=== PATIENT | female | born 1980 | race Caucasian/White ===

== ENCOUNTER 2017-01-29 14:55 | Observation (INO) | payer MEDICAID ==
[~2017-01-29] VITALS: Ht 154.9 cm; Wt 54.0 kg
[2017-01-29] MEDS ORDERED: PREN1TAB80 PO (15:24)
[2017-01-29] MEDS ORDERED: FOLI1 PO (15:24)
[2017-01-29 17:05] LABS: APPEARANCE,URINE CLEAR (CLEAR); BILIRUBIN,URINE NEGATIVE (NEGATIVE); GLUCOSE, URINE (UA) >=1000 mg/dL (NEGATIVE); KETONES,URINE TRACE mg/dL (NEGATIVE); LEUKOCYTE ESTERASE ,URINE NEGATIVE (NEGATIVE); NITRATE,URINE NEGATIVE (NEGATIVE); OCCULT BLOOD,URINE NEGATIVE (NEGATIVE); PH,URINE 7.5 (5.0-8.0); PROTEIN,URINE NEGATIVE (NEGATIVE)
[2017-01-29 17:15] LABS: SQUAMOUS EPITHELIAL CELL,UR Few /LPF (None Seen)
[2017-01-29 17:16] LABS: BACTERIA,URINE Few /HPF (None Seen)
== END 2017-01-29 18:45 | disposition home or self-care (01) ==
LOC: 4S 14:55 → PREINTOOBSV 15:30
PROVIDERS: ADMIT Obstetrics & Gynecology; ATTEND Obstetrics & Gynecology
DX: O26.892 Other specified pregnancy related conditions, second trimester (principal); N89.8 Other specified noninflammatory disorders of vagina; R10.30 Lower abdominal pain, unspecified; Z3A.24 24 weeks gestation of pregnancy
CPT/HCPCS: 59025; 76805; 81001; G0378

== ENCOUNTER 2017-03-31 11:01 | Observation (INO) | payer MEDICAID ==
[~2017-03-31] VITALS: Wt 53.5 kg
[~2017-03-31 11:01] MED LIST: FOLI1 PO; PREN1TAB80 PO
[2017-03-31 12:57] LABS: GLUCOMETER DEV NAME(LOC) 4S 8; GLUCOSE,POINT OF CARE 73 MG/DL (70-110)
== END 2017-03-31 13:00 | disposition home or self-care (01) ==
LOC: 4S 11:01
PROVIDERS: ADMIT Obstetrics & Gynecology; ATTEND Obstetrics & Gynecology
DX: O24.410 Gestational diabetes mellitus in pregnancy, diet controlled (principal); O09.523 Supervision of elderly multigravida, third trimester; Z3A.33 33 weeks gestation of pregnancy
CPT/HCPCS: 59025; 82962; G0378

== ENCOUNTER 2017-04-05 08:50 | Observation (INO) | payer MEDICAID ==
[~2017-04-05] VITALS: Ht 152.4 cm; Wt 54.4 kg
[2017-04-05] MEDS ORDERED: PREN-134 PO (09:05)
[2017-04-05 09:46] VITALS: BP 107/66
[2017-04-05] MEDS ORDERED: INSNPH SQ (09:49)
[2017-04-05 10:05] LABS: GLUCOMETER DEV NAME(LOC) 4S 8; GLUCOSE,POINT OF CARE 85 MG/DL (70-110)
== END 2017-04-05 12:30 | disposition home or self-care (01) ==
LOC: 4S 08:50
PROVIDERS: ADMIT Obstetrics & Gynecology; ATTEND Obstetrics & Gynecology
DX: O24.414 Gestational diabetes mellitus in pregnancy, insulin controlled (principal); O26.893 Other specified pregnancy related conditions, third trimester; R10.30 Lower abdominal pain, unspecified; O09.523 Supervision of elderly multigravida, third trimester; Z3A.34 34 weeks gestation of pregnancy
CPT/HCPCS: 59025; 82962; G0378

== ENCOUNTER 2017-04-07 08:36 | Observation (INO) | payer MEDICAID ==
[~2017-04-07] VITALS: Ht 154.9 cm; Wt 54.9 kg
[~2017-04-07 08:36] MED LIST changes: +INSNPH SQ; +PREN-134 PO
[2017-04-07 09:33] VITALS: BP 101/71
[2017-04-07 09:38] LABS: GLUCOMETER DEV NAME(LOC) 4S 8; GLUCOSE,POINT OF CARE 86 MG/DL (70-110)
[2017-04-07] MEDS ORDERED: INFLUENZA VIRUS VACCINE QVS 2017-18 (3YR+)/PF 60 MCG/0.5 ML SYRINGE IM ONE (10:00)
[2017-04-07 10:42] LABS: APPEARANCE,URINE CLOUDY (CLEAR); BILIRUBIN,URINE NEGATIVE (NEGATIVE); GLUCOSE, URINE (UA) NEGATIVE (NEGATIVE); KETONES,URINE NEGATIVE (NEGATIVE); LEUKOCYTE ESTERASE ,URINE MODERATE (NEGATIVE); NITRATE,URINE NEGATIVE (NEGATIVE); OCCULT BLOOD,URINE SMALL (NEGATIVE); PROTEIN,URINE NEGATIVE (NEGATIVE); UROBILINOGEN,URINE 0.2 mg/dL (<=1.0)
[2017-04-07 10:55] LABS: BACTERIA,URINE Moderate /HPF (None Seen); SQUAMOUS EPITHELIAL CELL,UR Many /LPF (None Seen)
[2017-04-07 10:58] LABS: MUCUS,URINE Few LPF (None Seen)
== END 2017-04-07 12:15 | disposition home or self-care (01) ==
LOC: 4S 09:05
PROVIDERS: ADMIT Obstetrics & Gynecology; ATTEND Obstetrics & Gynecology
DX: O24.419 Gestational diabetes mellitus in pregnancy, unspecified control (principal); O26.893 Other specified pregnancy related conditions, third trimester; R10.30 Lower abdominal pain, unspecified; O09.523 Supervision of elderly multigravida, third trimester; Z3A.34 34 weeks gestation of pregnancy
CPT/HCPCS: 36430; 76805; 81001; 82962; 87086; 90471; G0378

== ENCOUNTER 2017-04-11 08:35 | Observation (INO) | payer MEDICAID ==
[2017-04-11 09:23] VITALS: BP 103/64
[2017-04-11 09:38] LABS: GLUCOMETER DEV NAME(LOC) 4S 8; GLUCOSE,POINT OF CARE 86 MG/DL (70-110)
== END 2017-04-11 10:25 | disposition home or self-care (01) ==
LOC: 4S 08:35
PROVIDERS: ADMIT Obstetrics & Gynecology; ATTEND Obstetrics & Gynecology
DX: O24.414 Gestational diabetes mellitus in pregnancy, insulin controlled (principal); O26.893 Other specified pregnancy related conditions, third trimester; R10.9 Unspecified abdominal pain; O09.523 Supervision of elderly multigravida, third trimester; Z3A.34 34 weeks gestation of pregnancy
CPT/HCPCS: 59025; 76805; 82962; G0378

== ENCOUNTER 2017-04-14 08:55 | Observation (INO) | payer MEDICAID ==
[~2017-04-14] VITALS: Ht 152.4 cm; Wt 54.9 kg
[~2017-04-14 08:55] MED LIST changes: -PREN-134 PO
[2017-04-14 09:05] VITALS: BP 103/66
[2017-04-14 09:23] LABS: GLUCOMETER DEV NAME(LOC) 4S 8; GLUCOSE,POINT OF CARE 97 MG/DL (70-110)
== END 2017-04-14 12:05 | disposition home or self-care (01) ==
LOC: 4S 08:55
PROVIDERS: ADMIT Obstetrics & Gynecology; ATTEND Obstetrics & Gynecology
DX: O24.419 Gestational diabetes mellitus in pregnancy, unspecified control (principal); O62.9 Abnormality of forces of labor, unspecified; Z3A.35 35 weeks gestation of pregnancy
CPT/HCPCS: 59025; 76805; 82962; G0378

== ENCOUNTER 2017-04-16 08:55 | Observation (INO) | payer MEDICAID ==
[~2017-04-16] VITALS: Ht 152.4 cm; Wt 56.2 kg
[2017-04-16 09:14] VITALS: BP 104/68
[2017-04-16 09:42] LABS: GLUCOMETER DEV NAME(LOC) 4S 8; GLUCOSE,POINT OF CARE 114 MG/DL (70-110)
[2017-04-16 09:42] LABS: GLUCOMETER DEV NAME(LOC) 4S 8; GLUCOSE,POINT OF CARE 125 MG/DL (70-110)
== END 2017-04-16 10:00 | disposition home or self-care (01) ==
LOC: 4S 08:55
PROVIDERS: ADMIT Obstetrics & Gynecology; ATTEND Obstetrics & Gynecology
DX: O24.414 Gestational diabetes mellitus in pregnancy, insulin controlled (principal); O09.523 Supervision of elderly multigravida, third trimester; Z3A.35 35 weeks gestation of pregnancy
CPT/HCPCS: 59025; 76805; 82962; G0378

== ENCOUNTER 2017-04-18 08:43 | Observation (INO) | payer MEDICAID ==
[~2017-04-18] VITALS: Ht 154.9 cm; Wt 55.8 kg
[2017-04-18 09:00] VITALS: BP 104/61
== END 2017-04-18 10:40 | disposition home or self-care (01) ==
LOC: 4S 08:43
PROVIDERS: ADMIT Obstetrics & Gynecology; ATTEND Obstetrics & Gynecology
DX: O09.523 Supervision of elderly multigravida, third trimester (principal); O24.414 Gestational diabetes mellitus in pregnancy, insulin controlled; Z3A.35 35 weeks gestation of pregnancy
CPT/HCPCS: 59025; 76805; G0378

== ENCOUNTER 2017-04-21 08:50 | Observation (INO) | payer MEDICAID ==
[~2017-04-21] VITALS: Ht 152.4 cm; Wt 55.5 kg
[2017-04-21 09:10] VITALS: BP 103/64
[2017-04-21 11:08] LABS: GLUCOMETER DEV NAME(LOC) 4S 8; GLUCOSE,POINT OF CARE 74 MG/DL (70-110)
== END 2017-04-21 11:20 | disposition home or self-care (01) ==
LOC: 4S 08:50
PROVIDERS: ADMIT Obstetrics & Gynecology; ATTEND Obstetrics & Gynecology
DX: O24.419 Gestational diabetes mellitus in pregnancy, unspecified control (principal); O09.523 Supervision of elderly multigravida, third trimester; Z3A.36 36 weeks gestation of pregnancy
CPT/HCPCS: 59025; 76805; 82962; G0378

== ENCOUNTER 2017-04-25 09:25 | Observation (INO) | payer MEDICAID ==
[~2017-04-25] VITALS: Ht 152.4 cm; Wt 55.8 kg
[2017-04-25 10:14] VITALS: BP 112/74
[2017-04-25 10:37] LABS: GLUCOMETER DEV NAME(LOC) 4S 8; GLUCOSE,POINT OF CARE 82 MG/DL (70-110)
== END 2017-04-25 11:30 | disposition home or self-care (01) ==
LOC: 4S 09:25
PROVIDERS: ADMIT Obstetrics & Gynecology; ATTEND Obstetrics & Gynecology
DX: O09.523 Supervision of elderly multigravida, third trimester (principal); Z3A.36 36 weeks gestation of pregnancy
CPT/HCPCS: 59025; 76805; 82962; G0378

== ENCOUNTER 2017-04-28 09:00 | Observation (INO) | payer MEDICAID ==
[~2017-04-28] VITALS: Ht 152.4 cm; Wt 56.2 kg
[2017-04-28 09:20] VITALS: BP 106/71
[2017-04-28 09:38] LABS: GLUCOMETER DEV NAME(LOC) 4S 8; GLUCOSE,POINT OF CARE 92 MG/DL (70-110)
== END 2017-04-28 10:45 | disposition home or self-care (01) ==
LOC: 4S 09:00
PROVIDERS: ADMIT Obstetrics & Gynecology; ATTEND Obstetrics & Gynecology
DX: O24.414 Gestational diabetes mellitus in pregnancy, insulin controlled (principal); O26.893 Other specified pregnancy related conditions, third trimester; R10.30 Lower abdominal pain, unspecified; O09.523 Supervision of elderly multigravida, third trimester; Z3A.37 37 weeks gestation of pregnancy
CPT/HCPCS: 59025; 76816; 82962; G0378

== ENCOUNTER 2017-04-29 14:53 | Inpatient (IN) | payer MEDICAID ==
[~2017-04-29] VITALS: Ht 154.9 cm; Wt 56.2 kg
[2017-04-29] MEDS ORDERED: RINGERS SOLUTION,LACTATED 1,000 ML IV PRN (15:10)
[2017-04-29] MEDS ORDERED: RINGERS SOLUTION,LACTATED 1,000 ML IV SCH (15:10)
[2017-04-29] MEDS ORDERED: OXYTOCIN 30 UNITS/LACT RINGERS 500 ML IV ONE (15:10)
[2017-04-29] MEDS ORDERED: RINGERS SOLUTION,LACTATED 1,000 ML IV ONE ×2 (15:13→17:09)
[2017-04-29] MEDS ORDERED: FentaNYL CITRATE-PF 100 MCG/2 ML VIAL IVP PRN (15:15)
[2017-04-29] MEDS ORDERED: LIDOCAINE HCL/PF 1% 30 ML VIAL INJ PRN (15:15)
[2017-04-29] MEDS ORDERED: CITRIC ACID/SODIUM CITRATE 30 ML SOLUTION UDCUP PO PRN (15:15)
[2017-04-29] MEDS ORDERED: METOCLOPRAMIDE HCL 5 MG/ML 2 ML VIAL IVP PRN (15:15)
[2017-04-29] MEDS ORDERED: METHYLERGONOVINE MALEATE 0.2 MG/ML VIAL IM PRN (15:15)
[2017-04-29 15:30] VITALS: BP 120/89
[2017-04-29 15:41] LABS: BASOPHILS % (AUTO) 1.7 % (0.0-2.0); EOSINOPHILS % (AUTO) 0.5 % (1.0-6.0); HEMATOCRIT 37.8 % (36-46); HEMOGLOBIN 12.4 g/dL (12.0-16.0); LYMPHOCYTES # (AUTO) 1.7 K/uL (1.0-4.8); LYMPHOCYTES % (AUTO) 15.3 % (22.0-44.0); MEAN CORPUSCULAR HEMOGLOBIN 27.2 pg (26.0-34.0); MEAN CORPUSCULAR HGB CONC 32.8 G/dL (31.0-37.0); MEAN CORPUSCULAR VOLUME 83 fL (80-100); MONOCYTES # (AUTO) 0.6 K/uL (0.1-1.0); MONOCYTES % (AUTO) 5.7 % (2.0-9.0); NEUTROPHILS # (AUTO) 8.6 K/uL (1.8-7.7); NEUTROPHILS % (AUTO) 76.8 % (40.0-70.0); PLATELET COUNT (AUTO)-OB 178 K/uL (150-450); RED BLOOD CELL COUNT(AUTO) 4.56 MIL/uL (4.00-5.20); RED CELL DISTRIBUTION WIDTH 15.7 % (11.5-14.5)
[2017-04-29 15:55] LABS: PLATELET MORPHOLOGY COMMENT GIANT PLTS PRESENT
[2017-04-29] MEDS ORDERED: LANOLIN 7 GM OINTMENT TP PRN (17:15)
[2017-04-29] MEDS ORDERED: MEASLES/MUMPS/RUBELLA VACCINE, LIVE 0.5 ML/VIAL SQ ONE (17:15)
[2017-04-29] MEDS ORDERED: GLYCERIN/WITCH HAZEL LEAF 40 PADS JAR TP PRN (17:15)
[2017-04-29] MEDS ORDERED: OxyCODONE HCL/ACETAMINOPHEN 5-325 MG TABLET PO PRN ×2 (17:15)
[2017-04-29] MEDS ORDERED: BENZOCAINE 20%/MENTHOL 56 GM SPRAY CANISTER TP PRN (17:15)
[2017-04-29] MEDS: IBUPROFEN 600 MG TABLET PO PRN (17:51)
[2017-04-29 18:03] LABS: GLUCOMETER DEV NAME(LOC) 4S 8; GLUCOSE,POINT OF CARE 74 MG/DL (70-110)
[2017-04-29] MEDS ORDERED: OXYGEN THERAPY IH SCH (20:00)
[2017-04-29] MEDS: MAGNESIUM HYDROXIDE SUSPENSION 30 ML UDCUP PO SCH (20:46)
[2017-04-30] MEDS: IBUPROFEN 600 MG TABLET PO PRN ×3 (01:31→13:36)
[2017-04-30] MEDS: MAGNESIUM HYDROXIDE SUSPENSION 30 ML UDCUP PO SCH (07:41)
[2017-04-30] MEDS ORDERED: IBUP-2070 PO (13:19)
== END 2017-04-30 18:40 | disposition home or self-care (01) | DRG 560 ==
LOC: 4S 14:53 → OBSVTOIN 15:09
PROVIDERS: ADMIT Obstetrics & Gynecology; ATTEND Obstetrics & Gynecology
PROC: 10E0XZZ Delivery of Products of Conception, External Approach (ICD-10-PCS; principal; 2017-04-29)
PROC: 0HQ9XZZ Repair Perineum Skin, External Approach (ICD-10-PCS; 2017-04-29)
PROC: 3E0R3BZ Introduction of Anesthetic Agent into Spinal Canal, Percutaneous Approach (ICD-10-PCS; 2017-04-29)
PROC: 00HU33Z Insertion of Infusion Device into Spinal Canal, Percutaneous Approach (ICD-10-PCS; 2017-04-29)
DX: O70.0 First degree perineal laceration during delivery (principal); O09.513 Supervision of elderly primigravida, third trimester; Z37.0 Single live birth; Z3A.37 37 weeks gestation of pregnancy
CPT/HCPCS: 59025; 82962; 86850; 86900; 86901; J2590; J3490; J7120